=== PATIENT | female | born 1930 | race Caucasian/White ===

== ENCOUNTER 2017-01-29 10:58 | Inpatient (IN) | payer OTHER, MEDICAID ==
--- NOTE | 2017-01-29 11:51 | DR.EXTPAIN ---
HPI - Time seen Time seen: 13:10 - PCP Primary Care Physician: ROSMERY - HPI Comment HPI Comment: NO LOC. IN SEVERE PAIN. SOME SOB PRESENT. - Complaint/Symptoms Chief Complaint Doctor Comments: FALL, PAIN RT NECK, RT SHOULDER, RT HIP, RT KNEE, RT ANKLE AND UPPER BACK PAIN. Chief Complaint:: PT. 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 PT. C/O RIGHT UPPER BACK PAIN, RIGHT SHOULDER AND ARM PAIN, AND RIGHT LEG PAIN. PT. HAS SWELLING NOTED TO RIGHT SHOULDER BLADE. BRUISE NOTED TO RIGHT SHOULDER. - Nurses notes reviewed Nurses Notes Review: Yes - Source History Provided: Patient - Mode of arrival Mode of Arrival: Wheelchair - Timing Onset of Chief Complaint: 01/29/17 - Context History of: Arthritis - Associated signs and symptoms Associated Signs and Symptoms: Pain, Swelling, Bruising PMH - PMH Past Medical History: Yes Past Medical History: Dyslipidemia Past Medical History Comment: IRREGULAR HEART BEAT, STOMACH ULCERS Past Surgical History: Yes Surgical History: Hysterectomy, Ortho Surgery, Tonsillectomy Past Surgical History Comment: BACK SURGERY X 4, LEFT HIP, RIGHT HIP - Family History History of Family Medical Conditions: No - Social History Does patient currently use any type of tobacco product: No Have you used tobacco products in the last 12 months: No Type of Tobacco Use: None Does any household member use tobacco: No Alcohol Use: None Do you use any recreational Drugs:: No Lives With: Family Lives Where: Home - infectious screening In the last 2 months have you had wt loss of >10#?: NO Have you had fever, night sweats or hemotysis?: No Have you traveled outside the country in the last 6 months?: No Isolation: Standard ROS - Review of Systems Constitutional: Loss of Appetite. negative: Chills, Diaphoresis, Fever, Malaise , Weakness Eyes: negative: Eye Pain, Discharge ENTM: negative: Ear Pain, Nose Discharge, Nose Congestion, Throat Pain Respiratoy: Short of Breath (MILD). negative: Productive Cough, Non-Productive Cough, Wheezing, Hemoptysis Cardiovascular: Chest Pain (CHEST WALL PAIN RT UPPER BACK.) Gastrointestinal/Abdominal: negative: Abdominal Pain, Nausea, Vomiting Genitourinary: No Symptoms Reported. negative: Dysuria, Hematuria Neurological: Headache Musculoskeletal: Back Pain, Right, Hip, Knee, Ankle Integumentary: Bruises, Other (SWELLING UPPER BACK ON RT SIDE.) Hematologic/Lymphatic: Easy Bleeding, Easy Bruising Endocrine: No Symptoms Reported All Other Systems: Reviewed and Negative PE - Vital Signs Vitals: Temperature 98.2 F Pulse Rate 73 Respiratory Rate 17 Blood Pressure 120/66 O2 Sat by Pulse Oximetry 96 - General Limitations: No Limitations General Appearance: Alert (IN PAIN.) - Head Head Exam: Normal Inspection - Eyes Eye exam: Normal Appearance - ENT ENT Exam: Normal External Ear Exam - Neck Neck Exam: Trachea Midline - Chest Chest Inspection: Symmetric Chest Wall Rise, Tenderness (RT UPPER CHEST), Other (KYPHOSIS) - Respiratory Respiratory Exam: Normal Lung Sounds Bilat, Chest Wall Tenderness Respiratory Exam: Bilateral Rhonchi, Lower Rhonchi - Cardiovascular Cardiovascular Exam: Regular Rate, Normal Rhythm, Normal Heart Sounds - Abdominal Exam Abdominal Exam: Normal Bowel Sounds, Soft. negative: Tenderness - Extremities Extremities Exam: Tenderness (RT LOWER EXT.), Joint Swelling (RT KNEE AND RT ANKLE.) - Upper Extremities Shoulder Exam: Tenderness (RT SHOULDER), Swelling (RT SHOULDER), Erythema Arm Exam: Tenderness Elbow Exam: Normal Inspection Forearm Exam: Normal Inspection Hand Exam: Normal Inspection Neuromotor Exam: Normal Exam Upper Ext. Vascular Exam: Capillary Refill - Lower Extremities Hip/Pelvis Exam: Tenderness (TR HIP) Upper Leg Exam: Tenderness Knee Exam: Tenderness, Swelling. negative: Full ROM Lower Leg Exam: Tenderness Ankle Exam: Tenderness, Swelling Foot/Toe Exam: Tenderness Neurovascular/Tendon Exam: Normal Capillary Refill Gait Exam: Observed & Limited by Pain - Back Back Exam: Paraspinal Tenderness (RT), Vertebral Tenderness - Neurological Neurological Exam: Alert, Oriented X3 - Psychiatric Psychiatric Exam: Anxious - Skin Skin Exam: Erythema MDM - Differential Diagnosis Differential Diagnosis: Abrasion, Contusion, Fracture, Sprain, Other (CLOSE FRACTURE) Course - Treatment Treatment: SEE REPORT. - Consultation Consultation Comments: DISCUSS PATIENT WITH DR. STONER. HE WILL ADMIT PATIENT. - Education/Counseling Education/Counseling: Patient, Family, Education Educated On: Treatment, Diagnosis ROR - Labs Reviewed Result Diagrams: 01/29/17 15:36 01/29/17 15:36 - XRAY XRAY Interpreted by: Radiologist XRAY Findings: REPORT DISCUSS WITH PATIENT AND HER FAMILY. - EKG Rhythm: NSR (EKG NOTED) - Diagnosis Discharge Problem: Intractable pain, Multiple contusions Fracture of ribs, multiple Qualifiers: Encounter type: initial encounter Fracture type: closed Laterality: right Qualified Code(s): S22.41XA - Multiple fractures of ribs, right side, initial encounter for closed fracture - Discharge Plan Disposition: ADMITTED INPATIENT Condition: Stable - Follow ups/Referrals - Instructions
[2017-01-29] MEDS ORDERED: ZOFRAN INJ 4 MG VIAL IM ONE (12:44)
[2017-01-29] MEDS ORDERED: MORPHINE SULFATE INJ 4 MG IM ONE (12:44)
[2017-01-29] MEDS ORDERED: MORPHINE SULFATE INJ 4 MG ONE (12:51)
[2017-01-29] MEDS ORDERED: ZOFRAN INJ 4 MG VIAL ONE (12:51)
--- NOTE | 2017-01-29 14:13 | CT ---
History: Fall this morning with back and shoulder pain Study: Multi meeting/event planner CT thorax without IV contrast Findings: There is hyperinflation of clear lungs without pneumothorax or pleural effusion. There is no obvious mediastinal or hilar adenopathy. The heart size is prominent. There are multiple osteopor otic compression fractures most of which are stabilized by methylmethacrylate. The sternum is intact . The visualized upper abdomen is unremarkable. There is an acute fracture of the right 8th and 9th posterior ribs. Impression: 1. Right 8th and 9th acute posterior rib fractures 2. Osteoporosis 3. COPD Reported By:
--- NOTE | 2017-01-29 14:23 | CT ---
HISTORY: Injury, fall, neck pain Study: CT cervical spine without contrast Comparison: None Technique: Axial non contrast images with coronal and sagittal reformats. Dose reduction procedures were used with MA/kv adjusted for body size. Findings: The bones are osteopenic The prevertebral soft tissues are normal. The alignment is normal. The vert ebral bodies are of average height. Degenerative disc disease is present C3-4, C4-5. The pedicles, s pinous processes, and posterior elements are intact. Diffuse severe bilateral facet degenerative luz marina nt disease is present. Mild spondylitic canal stenosis is present at C3-4 atlantoaxial degenerative joint disease is present. There is no definite evidence for fracture or dislocation. IMPRESSION: No definite evidence for fracture or dislocation. Mild degenerative disc disease C3-4, C4-5 Diffuse bilateral facet degenerative joint disease. Mild spondylitic canal stenosis C3-4 Osteopenia Reported By:
--- NOTE | 2017-01-29 14:25 | RAD ---
History: Fall and pelvic pain. Study: AP pelvis Comparison: None there is osteopenia. There are bilateral hip compression nails and rods for intertr ochanteric fractures that appear to be old. The pubic rami are intact. No acute fracture is demonstr ated. Impression: Old looking intertrochanteric fractures, no acute disease demonstrated Reported By:
--- NOTE | 2017-01-29 14:26 | RAD ---
History: Fall and right shoulder pain Study: Three views of the right shoulder Findings: There is osteopenia. There is no fracture or dislocation demonstrated. Impression: No acute disease Reported By:
--- NOTE | 2017-01-29 14:26 | CT ---
HISTORY: Pain from fall Study: CT brain without contrast Comparison: None Technique: Multiple axial images of the brain were obtained from the skull base to the vertex without administr ation of IV contrast. Findings: No acute intraparenchymal hemorrhage or mass can be identified. No extra-axial fluid collections ar e seen. No alteration in the attenuation of the brain parenchyma can be identified to suggest acute or subacute ischemic change. The ventricles, sulci, and cisterns demonstrate an appearance consist ent with a [id number]-[id number] degree of generalized atrophy. Patchy areas of decreased attenuation wit hin the periventricular, subcortical, and subinsular white matter suggest changes of chronic small v essel ischemic disease. If symptoms or clinical concern persist recommend continued followup for fu rther evaluation. IMPRESSION: 1. No acute intracranial process can be identified. 2. Mild to moderate generalized atrophy with findings consistent with changes of chronic small vesse l ischemic disease. Reported By:
--- NOTE | 2017-01-29 14:26 | RAD ---
History: Fall and right ankle pain Study: Three views right ankle. Findings: There is osteopenia but no fracture or dislocation is demonstrated. Impression: No acute disease Reported By:
--- NOTE | 2017-01-29 14:29 | RAD ---
HISTORY: Injury, fall, right knee pain Study: Right knee three view Comparison: None Findings: No definite evidence for fracture is identified. There is severe tricompartmental degenerative joint disease present. There is a moderately large joint effusion present. IMPRESSION: No fracture identified Joint effusion Severe tricompartmental degenerative joint disease Reported By:
[2017-01-29] MEDS ORDERED: ZOFRAN INJ 4 MG VIAL IVP PRN (15:20)
[2017-01-29 15:46] LABS: BASOPHILS % (AUTO) 0.7 % (0.2-1.0); EOSINOPHILS # (AUTO) 0.2 x10^3/uL (0.0-0.2); EOSINOPHILS % (AUTO) 3.9 % (0.9-2.9); HEMATOCRIT 27.9 % (36.0-47.0); HEMOGLOBIN 9.5 g/dL (12.0-16.0); LYMPHOCYTES % (AUTO) 22.6 % (21.0-51.0); MEAN CORPUSCULAR HEMOGLOBIN 32.7 pg (27.0-34.0); MEAN CORPUSCULAR VOLUME 96.2 fL (80.0-100.0); MEAN PLATELET VOLUME 7.8 fL (7.4-11.0); MONOCYTES # (AUTO) 0.3 x10^3/uL (0.3-0.8); NEUTROPHILS # (AUTO) 2.9 x10^3/uL (2.2-4.8); NEUTROPHILS % (AUTO) 65.8 % (42.0-75.0); PLATELET COUNT 96 X10^3/uL (150.0-450.0); RED CELL DISTRIBUTION WIDTH 12.2 % (11.6-16.5); WHITE BLOOD COUNT 4.4 X10^3/uL (3.6-10.0)
[2017-01-29 15:55] LABS: ALANINE AMINOTRANSFERASE 28 Units/L (12-78); ALBUMIN 3.5 g/dL (3.4-5.0); ALKALINE PHOSPHATASE 46 Units/L (46-116); ASPARTATE AMINO TRANSFERASE 27 Units/L (15-37); BLOOD UREA NITROGEN 40 mg/dL (7-18); CALCIUM 8.4 mg/dL (8.5-10.1); CARBON DIOXIDE 32.2 mmol/L (21-32); CHLORIDE 102 mmol/L (98-107); CREATININE 1.35 mg/dL (0.55-1.02); GLUCOSE 92 mg/dL (65-99); SODIUM 136 mmol/L (136-145); TOTAL PROTEIN 6.8 g/dL (6.4-8.2); eGFR BLACK RACES 48 (>60); eGFR NON BLACK RACES 40 (>60)
[2017-01-29] MEDS: MORPHINE SULFATE INJ 2 MG IVP PRN ×2 (16:38→23:54)
[2017-01-29] MEDS: NS 1000 ML 1,000 ML IV SCH (17:09)
[2017-01-29] MEDS ORDERED: PROPRANOLOL HCL PO PRN (20:21)
[2017-01-29] MEDS ORDERED: KENALOG CREAM TOP PRN (20:27)
[2017-01-29] MEDS ORDERED: BETAXOLOL HCL EACHEYE SCH (21:00)
--- NOTE | 2017-01-29 21:25 | CT ---
CT right knee without contrast Indication: Knee pain after fall Technique: CT images of the right knee were obtained without contrast. Automatic exposure control wa s utilized. Comparison: None. Findings: There is marked generalized osteopenia, limiting evaluation of bony detail. There is acute minimally depressed fracture of the medial tibial plateau associated with subtle curv ilinear sclerosis within the metaphysis. There is cortical buckling along the medial aspect of the t ibial metaphysis. There is a large lipohemarthrosis. There appears to be a chronic healed fracture of the femoral metaphysis with associated external tin antoinette seen medially. There is severe tricompartmental DJD, worst in the lateral femorotibial compartment with associated large marginal osteophytes. Meniscal chondrocalcinosis is noted. Extensor mechanism and MCL are lamin sly intact. Impression: 1. Minimally depressed medial tibial plateau fracture. Large lipohemarthrosis. 2. Marked tricompartmental DJD, generalized osteopenia. 3. Meniscal chondrocalcinosis is nonspecific, but can be associated with CPPD arthropathy. Reported By:
[2017-01-29] MEDS: TIMOPTIC 0.5% EYE DROPS EACHEYE SCH (21:52)
[2017-01-29] MEDS: COSOPT OPTH EACHEYE SCH (21:52)
[2017-01-29] MEDS: BETAXOLOL HCL AFFEYE SCH (21:52)
[2017-01-29] MEDS: LYRICA CAP 75 MG PO SCH (23:59)
[2017-01-30] MEDS: MORPHINE SULFATE INJ 2 MG IVP PRN ×4 (04:03→17:20)
[2017-01-30] MEDS: NORCO 7.5/325 MG TAB PO PRN ×3 (05:26→19:13)
[2017-01-30 06:31] LABS: ALANINE AMINOTRANSFERASE 25 Units/L (12-78); ALBUMIN 3.4 g/dL (3.4-5.0); ALKALINE PHOSPHATASE 43 Units/L (46-116); ASPARTATE AMINO TRANSFERASE 24 Units/L (15-37); BLOOD UREA NITROGEN 27 mg/dL (7-18); CARBON DIOXIDE 29.8 mmol/L (21-32); CHLORIDE 105 mmol/L (98-107); COR NA(FOR HYPERGLY) 138 mmol/L (136-145); CREATININE 1.06 mg/dL (0.55-1.02); GLUCOSE 113 mg/dL (65-99); SODIUM 138 mmol/L (136-145); TOTAL PROTEIN 6.8 g/dL (6.4-8.2); eGFR BLACK RACES > 60 (>60); eGFR NON BLACK RACES 52 (>60)
[2017-01-30 07:38] LABS: BASOPHILS % (AUTO) 0.6 % (0.2-1.0); EOSINOPHILS # (AUTO) 0.2 x10^3/uL (0.0-0.2); EOSINOPHILS % (AUTO) 3.9 % (0.9-2.9); HEMATOCRIT 28.3 % (36.0-47.0); HEMOGLOBIN 9.7 g/dL (12.0-16.0); LYMPHOCYTES # (AUTO) 1.1 X10^3/uL (1.3-2.9); LYMPHOCYTES % (AUTO) 24.8 % (21.0-51.0); MEAN CORPUSCULAR HGB CONC 34.3 g/dL (33.0-35.0); MEAN CORPUSCULAR VOLUME 96.4 fL (80.0-100.0); MEAN PLATELET VOLUME 8.8 fL (7.4-11.0); MONOCYTES # (AUTO) 0.3 x10^3/uL (0.3-0.8); MONOCYTES % (AUTO) 7.3 % (0.0-13.0); NEUTROPHILS # (AUTO) 2.8 x10^3/uL (2.2-4.8); NEUTROPHILS % (AUTO) 63.4 % (42.0-75.0); PLATELET COUNT 84 X10^3/uL (150.0-450.0); RED BLOOD COUNT 2.94 X10^6/uL (3.5-5.4); RED CELL DISTRIBUTION WIDTH 12.5 % (11.6-16.5); WHITE BLOOD COUNT 4.4 X10^3/uL (3.6-10.0)
[2017-01-30] MEDS: PRAVACHOL PO SCH (08:49)
[2017-01-30] MEDS: INDERAL TAB 10 MG PO PRN (08:49)
[2017-01-30] MEDS: FLONASE NASAL SPRAY ENOSTRIL SCH (08:50)
[2017-01-30] MEDS: COSOPT OPTH EACHEYE SCH ×2 (08:51→20:49)
[2017-01-30] MEDS: TIMOPTIC 0.5% EYE DROPS EACHEYE SCH ×2 (08:52→10:14)
[2017-01-30] MEDS: LYRICA CAP 75 MG PO SCH ×2 (09:20→20:42)
[2017-01-30] MEDS: BETAXOLOL HCL AFFEYE SCH ×2 (10:12→20:42)
[2017-01-30] MEDS: NS 1000 ML 1,000 ML IV SCH ×2 (13:17→19:31)
[2017-01-30] MEDS: MILK OF MAGNESIA PO PRN (20:41)
[2017-01-30] MEDS: COLACE CAP 100 MG PO PRN (20:41)
[2017-01-31] MEDS: MORPHINE SULFATE INJ 2 MG IVP PRN ×2 (01:28→09:49)
[2017-01-31] MEDS: NORCO 7.5/325 MG TAB PO PRN ×2 (03:08→07:37)
[2017-01-31 06:39] LABS: BASOPHILS % (AUTO) 0.5 % (0.2-1.0); EOSINOPHILS # (AUTO) 0.2 x10^3/uL (0.0-0.2); EOSINOPHILS % (AUTO) 4.7 % (0.9-2.9); HEMATOCRIT 23.7 % (36.0-47.0); HEMOGLOBIN 8.2 g/dL (12.0-16.0); LYMPHOCYTES # (AUTO) 1.1 X10^3/uL (1.3-2.9); LYMPHOCYTES % (AUTO) 28.3 % (21.0-51.0); MEAN CORPUSCULAR HEMOGLOBIN 33.1 pg (27.0-34.0); MEAN CORPUSCULAR HGB CONC 34.4 g/dL (33.0-35.0); MEAN CORPUSCULAR VOLUME 96.1 fL (80.0-100.0); MEAN PLATELET VOLUME 8.4 fL (7.4-11.0); MONOCYTES # (AUTO) 0.4 x10^3/uL (0.3-0.8); MONOCYTES % (AUTO) 9.8 % (0.0-13.0); NEUTROPHILS # (AUTO) 2.2 x10^3/uL (2.2-4.8); NEUTROPHILS % (AUTO) 56.7 % (42.0-75.0); PLATELET COUNT 65 X10^3/uL (150.0-450.0); RED BLOOD COUNT 2.46 X10^6/uL (3.5-5.4); RED CELL DISTRIBUTION WIDTH 12.5 % (11.6-16.5)
[2017-01-31 06:54] LABS: ALANINE AMINOTRANSFERASE 21 Units/L (12-78); ALKALINE PHOSPHATASE 39 Units/L (46-116); ASPARTATE AMINO TRANSFERASE 19 Units/L (15-37); BLOOD UREA NITROGEN 18 mg/dL (7-18); CARBON DIOXIDE 28.3 mmol/L (21-32); CHLORIDE 105 mmol/L (98-107); COR CA(FOR HYPOALB) 8.8 mg/dL (8.5-10.1); CREATININE 0.88 mg/dL (0.55-1.02); GLUCOSE 95 mg/dL (65-99); SODIUM 136 mmol/L (136-145); TOTAL PROTEIN 6.1 g/dL (6.4-8.2); eGFR BLACK RACES > 60 (>60); eGFR NON BLACK RACES > 60 (>60)
[2017-01-31] MEDS: LYRICA CAP 75 MG PO SCH ×2 (09:43→20:19)
[2017-01-31] MEDS: COLACE CAP 100 MG PO PRN (09:43)
[2017-01-31] MEDS: MILK OF MAGNESIA PO PRN (09:43)
[2017-01-31] MEDS: FLONASE NASAL SPRAY ENOSTRIL SCH (09:44)
[2017-01-31] MEDS: BETAXOLOL HCL AFFEYE SCH ×2 (09:44→20:23)
[2017-01-31] MEDS: COSOPT OPTH EACHEYE SCH ×2 (09:44→20:29)
[2017-01-31] MEDS: INDERAL TAB 10 MG PO PRN (09:44)
[2017-01-31] MEDS: TIMOPTIC 0.5% EYE DROPS EACHEYE SCH (09:47)
[2017-01-31] MEDS: PRAVACHOL PO SCH (10:58)
[2017-01-31] MEDS: NORCO 10/325 TAB PO PRN ×2 (14:35→23:07)
[2017-01-31] MEDS: ZANTAC PO SCH ×2 (14:36→20:19)
[2017-01-31] MEDS: DILAUDID INJ IVP PRN (20:11)
[2017-02-01] MEDS: DILAUDID INJ IVP PRN (06:07)
[2017-02-01] MEDS: NS 1000 ML 1,000 ML IV SCH ×3 (06:08→19:35)
[2017-02-01 06:16] LABS: BASOPHILS % (AUTO) 0.8 % (0.2-1.0); EOSINOPHILS # (AUTO) 0.1 x10^3/uL (0.0-0.2); EOSINOPHILS % (AUTO) 3.3 % (0.9-2.9); HEMATOCRIT 23.4 % (36.0-47.0); LYMPHOCYTES # (AUTO) 1.3 X10^3/uL (1.3-2.9); LYMPHOCYTES % (AUTO) 28.5 % (21.0-51.0); MEAN CORPUSCULAR HEMOGLOBIN 33.2 pg (27.0-34.0); MEAN CORPUSCULAR HGB CONC 34.4 g/dL (33.0-35.0); MEAN CORPUSCULAR VOLUME 96.5 fL (80.0-100.0); MEAN PLATELET VOLUME 9.3 fL (7.4-11.0); MONOCYTES # (AUTO) 0.6 x10^3/uL (0.3-0.8); MONOCYTES % (AUTO) 12.9 % (0.0-13.0); NEUTROPHILS # (AUTO) 2.4 x10^3/uL (2.2-4.8); NEUTROPHILS % (AUTO) 54.5 % (42.0-75.0); PLATELET COUNT 67 X10^3/uL (150.0-450.0); RED BLOOD COUNT 2.42 X10^6/uL (3.5-5.4); RED CELL DISTRIBUTION WIDTH 12.5 % (11.6-16.5); WHITE BLOOD COUNT 4.5 X10^3/uL (3.6-10.0)
[2017-02-01 06:31] LABS: ALANINE AMINOTRANSFERASE 17 Units/L (12-78); ALBUMIN 2.7 g/dL (3.4-5.0); ALKALINE PHOSPHATASE 37 Units/L (46-116); ASPARTATE AMINO TRANSFERASE 20 Units/L (15-37); BLOOD UREA NITROGEN 14 mg/dL (7-18); CALCIUM 7.8 mg/dL (8.5-10.1); CARBON DIOXIDE 26.5 mmol/L (21-32); CHLORIDE 106 mmol/L (98-107); COR CA(FOR HYPOALB) 8.8 mg/dL (8.5-10.1); CREATININE 0.82 mg/dL (0.55-1.02); GLUCOSE 91 mg/dL (65-99); SODIUM 137 mmol/L (136-145); eGFR BLACK RACES > 60 (>60); eGFR NON BLACK RACES > 60 (>60)
[2017-02-01] MEDS: LYRICA CAP 75 MG PO SCH ×2 (09:59→20:22)
[2017-02-01] MEDS: NORCO 10/325 TAB PO PRN ×2 (09:59→16:30)
[2017-02-01] MEDS: ZANTAC PO SCH ×2 (10:01→20:22)
[2017-02-01] MEDS: PRAVACHOL PO SCH ×2 (10:01→10:05)
[2017-02-01] MEDS: TIMOPTIC 0.5% EYE DROPS EACHEYE SCH (10:02)
[2017-02-01] MEDS: FLONASE NASAL SPRAY ENOSTRIL SCH (10:03)
[2017-02-01] MEDS: BETAXOLOL HCL AFFEYE SCH ×2 (10:03→20:28)
[2017-02-01] MEDS: COSOPT OPTH EACHEYE SCH ×2 (10:04→20:28)
[2017-02-02] MEDS: NORCO 10/325 TAB PO PRN ×3 (00:30→17:04)
[2017-02-02] MEDS: NS 1000 ML 1,000 ML IV SCH ×2 (00:32→16:38)
[2017-02-02 04:41] LABS: BASOPHILS % (AUTO) 0.9 % (0.2-1.0); EOSINOPHILS # (AUTO) 0.2 x10^3/uL (0.0-0.2); EOSINOPHILS % (AUTO) 3.9 % (0.9-2.9); HEMATOCRIT 23.5 % (36.0-47.0); HEMOGLOBIN 8.1 g/dL (12.0-16.0); LYMPHOCYTES # (AUTO) 1.1 X10^3/uL (1.3-2.9); LYMPHOCYTES % (AUTO) 24.6 % (21.0-51.0); MEAN CORPUSCULAR HGB CONC 34.4 g/dL (33.0-35.0); MEAN CORPUSCULAR VOLUME 95.9 fL (80.0-100.0); MEAN PLATELET VOLUME 9.2 fL (7.4-11.0); MONOCYTES # (AUTO) 0.5 x10^3/uL (0.3-0.8); MONOCYTES % (AUTO) 11.7 % (0.0-13.0); NEUTROPHILS # (AUTO) 2.5 x10^3/uL (2.2-4.8); NEUTROPHILS % (AUTO) 58.9 % (42.0-75.0); PLATELET COUNT 77 X10^3/uL (150.0-450.0); RED BLOOD COUNT 2.45 X10^6/uL (3.5-5.4); RED CELL DISTRIBUTION WIDTH 12.6 % (11.6-16.5); WHITE BLOOD COUNT 4.3 X10^3/uL (3.6-10.0)
[2017-02-02 04:51] LABS: ALANINE AMINOTRANSFERASE 19 Units/L (12-78); ALBUMIN 2.7 g/dL (3.4-5.0); ALKALINE PHOSPHATASE 40 Units/L (46-116); ASPARTATE AMINO TRANSFERASE 18 Units/L (15-37); BLOOD UREA NITROGEN 14 mg/dL (7-18); CALCIUM 7.9 mg/dL (8.5-10.1); CARBON DIOXIDE 27.6 mmol/L (21-32); CHLORIDE 104 mmol/L (98-107); COR CA(FOR HYPOALB) 8.9 mg/dL (8.5-10.1); GLUCOSE 99 mg/dL (65-99); SODIUM 135 mmol/L (136-145); TOTAL PROTEIN 6.1 g/dL (6.4-8.2); eGFR BLACK RACES > 60 (>60); eGFR NON BLACK RACES > 60 (>60)
[2017-02-02] MEDS: DILAUDID INJ IVP PRN ×2 (07:40→20:06)
[2017-02-02] MEDS: ZANTAC PO SCH ×2 (09:09→20:07)
[2017-02-02] MEDS: FLONASE NASAL SPRAY ENOSTRIL SCH (09:10)
[2017-02-02] MEDS: PRAVACHOL PO SCH ×2 (09:11→09:38)
[2017-02-02] MEDS: COSOPT OPTH EACHEYE SCH ×2 (09:12→20:15)
[2017-02-02] MEDS: BETAXOLOL HCL AFFEYE SCH ×2 (09:12→20:15)
[2017-02-02] MEDS: LYRICA CAP 75 MG PO SCH ×2 (09:13→20:07)
[2017-02-02] MEDS: TIMOPTIC 0.5% EYE DROPS EACHEYE SCH (09:13)
[2017-02-02] MEDS ORDERED: COLACE CAP 100 MG PO SCH (15:00)
[2017-02-02] MEDS ORDERED: MILK OF MAGNESIA PO SCH (21:00)
[2017-02-03] MEDS: NORCO 10/325 TAB PO PRN (04:39)
[2017-02-03 05:09] LABS: BASOPHILS % (AUTO) 0.9 % (0.2-1.0); EOSINOPHILS # (AUTO) 0.2 x10^3/uL (0.0-0.2); EOSINOPHILS % (AUTO) 5.8 % (0.9-2.9); HEMATOCRIT 24.1 % (36.0-47.0); HEMOGLOBIN 8.4 g/dL (12.0-16.0); LYMPHOCYTES # (AUTO) 0.9 X10^3/uL (1.3-2.9); LYMPHOCYTES % (AUTO) 31.3 % (21.0-51.0); MEAN CORPUSCULAR HEMOGLOBIN 33.5 pg (27.0-34.0); MEAN CORPUSCULAR HGB CONC 34.8 g/dL (33.0-35.0); MEAN CORPUSCULAR VOLUME 96.3 fL (80.0-100.0); MEAN PLATELET VOLUME 8.9 fL (7.4-11.0); MONOCYTES # (AUTO) 0.4 x10^3/uL (0.3-0.8); MONOCYTES % (AUTO) 13.6 % (0.0-13.0); NEUTROPHILS # (AUTO) 1.5 x10^3/uL (2.2-4.8); NEUTROPHILS % (AUTO) 48.4 % (42.0-75.0); PLATELET COUNT 86 X10^3/uL (150.0-450.0); RED BLOOD COUNT 2.51 X10^6/uL (3.5-5.4); RED CELL DISTRIBUTION WIDTH 12.3 % (11.6-16.5)
[2017-02-03 05:11] LABS: ALANINE AMINOTRANSFERASE 17 Units/L (12-78); ALBUMIN 2.8 g/dL (3.4-5.0); ALKALINE PHOSPHATASE 43 Units/L (46-116); ASPARTATE AMINO TRANSFERASE 20 Units/L (15-37); BLOOD UREA NITROGEN 14 mg/dL (7-18); CALCIUM 8.3 mg/dL (8.5-10.1); CARBON DIOXIDE 28.6 mmol/L (21-32); CHLORIDE 106 mmol/L (98-107); COR CA(FOR HYPOALB) 9.3 mg/dL (8.5-10.1); CREATININE 0.75 mg/dL (0.55-1.02); GLUCOSE 88 mg/dL (65-99); SODIUM 141 mmol/L (136-145); TOTAL PROTEIN 6.3 g/dL (6.4-8.2); eGFR BLACK RACES > 60 (>60); eGFR NON BLACK RACES > 60 (>60)
[2017-02-03] MEDS: DILAUDID INJ IVP PRN (07:49)
[2017-02-03] MEDS ORDERED: COLACE CAP 100 MG PO SCH (09:00)
[2017-02-03] MEDS ORDERED: BUTT CREAM (COMPOUND) TOP PRN (09:27)
[2017-02-03] MEDS: ZANTAC PO SCH (09:59)
[2017-02-03] MEDS: FLONASE NASAL SPRAY ENOSTRIL SCH (10:00)
[2017-02-03] MEDS: LYRICA CAP 75 MG PO SCH (10:00)
[2017-02-03] MEDS: PRAVACHOL PO SCH ×2 (10:00→10:02)
[2017-02-03] MEDS: BETAXOLOL HCL AFFEYE SCH (10:00)
[2017-02-03] MEDS: COSOPT OPTH EACHEYE SCH (10:01)
[2017-02-03] MEDS: TIMOPTIC 0.5% EYE DROPS EACHEYE SCH (10:02)
[2017-02-03 12:36] VITALS: BP 166/72
[2017-02-03] MEDS ORDERED: GYLCERIN ADULT SUPP RECTAL PRN (13:14)
--- NOTE | 2017-02-08 19:06 | PCM.PROG ---
Progress Note - Progress Note for Day of Date: 02/02/17 - Subjective Subjective: THE PATIENT IS AN 86 YO FEMALE WHO HAS HAD MULTIPLE FALLS RESULTING IN INCREASED LOW BACK PAIN AND RIB CONTUSIONS. PATIENT CONTINUES TO COMPLAIN OF PAIN. - Past Medical Family Social History Past Med/Fam/Surg Hx: No changes since H&P Allergies: Allergies MS Ciprofloxacin [From Cipro] Adverse Reaction (Verified 01/29/17 16:06) MS Clindamycin [Clindamycin] Adverse Reaction (Verified 01/29/17 16:06) MS Penicillins [Penicillins] Adverse Reaction (Verified 01/29/17 16:06) MS Rofecoxib [From Vioxx] Adverse Reaction (Verified 01/29/17 16:06) - Review of Systems ROS: No change since H&P - Vital Signs and I&O's Vital Signs: Temperature 98.4 F Pulse Rate [Right Brachial] 83 Pulse Rate [Left Brachial] 89 Respiratory Rate 16 Blood Pressure [Right Arm] 166/72 Blood Pressure [Left Arm] 112/56 O2 Sat by Pulse Oximetry 96 - Physical Exam Oriented: Normal Eyes: Normal Ear: Normal Nose: Normal Throat: Normal Respiratory: Normal Cardiovascular: Normal : Normal Auscultation: Bowel Sounds: Normal Palpation: Normal Tenderness: Normal Skin: Normal Musculoskeletal: Back:Thoracic (RIBS), Back:Lumbar, Tender Psychiatric: Normal Mood Description: Calm Affect: Normal Speech Pattern: Clear, Appropriate - Laboratory and Diagnostics Result Diagrams: 02/03/17 03:25 02/03/17 03:25 Labs: Laboratory WBC 3.0 X10^3/uL (3.6-10.0) L 02/03/17 03:25 RBC 2.51 X10^6/uL (3.5-5.4) L 02/03/17 03:25 Hgb 8.4 g/dL (12.0-16.0) L 02/03/17 03:25 Hct 24.1 % (36.0-47.0) L 02/03/17 03:25 MCV 96.3 fL (80.0-100.0) 02/03/17 03:25 MCH 33.5 pg (27.0-34.0) 02/03/17 03:25 MCHC 34.8 g/dL (33.0-35.0) 02/03/17 03:25 RDW 12.3 % (11.6-16.5) 02/03/17 03:25 Plt Count 86 X10^3/uL (150.0-450.0) L 02/03/17 03:25 MPV 8.9 fL (7.4-11.0) 02/03/17 03:25 Neut % 48.4 % (42.0-75.0) 02/03/17 03:25 Lymph % 31.3 % (21.0-51.0) 02/03/17 03:25 Mcdonald % 13.6 % (0.0-13.0) H 02/03/17 03:25 Eos % 5.8 % (0.9-2.9) H 02/03/17 03:25 Baso % 0.9 % (0.2-1.0) 02/03/17 03:25 Neut # 1.5 x10^3/uL (2.2-4.8) L 02/03/17 03:25 Lymph # 0.9 X10^3/uL (1.3-2.9) L 02/03/17 03:25 Mcdonald # 0.4 x10^3/uL (0.3-0.8) 02/03/17 03:25 Eos # 0.2 x10^3/uL (0.0-0.2) 02/03/17 03:25 Baso # 0.0 X10^3/uL (0.0-0.1) 02/03/17 03:25 Absolute Nucleated RBC 0.1 /100WBC 02/03/17 03:25 Sodium 141 mmol/L (136-145) 02/03/17 03:25 Corrected Sodium TNP 02/03/17 03:25 Potassium 4.3 mmol/L (3.5-5.1) 02/03/17 03:25 Chloride 106 mmol/L (98-107) 02/03/17 03:25 Carbon Dioxide 28.6 mmol/L (21-32) 02/03/17 03:25 BUN 14 mg/dL (7-18) 02/03/17 03:25 Creatinine 0.75 mg/dL (0.55-1.02) 02/03/17 03:25 Est GFR (MDRD) Af Amer > 60 (>60) 02/03/17 03:25 Est GFR (MDRD) Non-Af > 60 (>60) 02/03/17 03:25 Glucose 88 mg/dL (65-99) 02/03/17 03:25 Calcium 8.3 mg/dL (8.5-10.1) L 02/03/17 03:25 Corrected Calcium 9.3 mg/dL (8.5-10.1) 02/03/17 03:25 Total Bilirubin 0.50 mg/dL (0.2-1.0) 02/03/17 03:25 AST 20 Units/L (15-37) 02/03/17 03:25 ALT 17 Units/L (12-78) 02/03/17 03:25 Alkaline Phosphatase 43 Units/L (46-116) L 02/03/17 03:25 Total Protein 6.3 g/dL (6.4-8.2) L 02/03/17 03:25 Albumin 2.8 g/dL (3.4-5.0) L 02/03/17 03:25 Globulin 3.5 g/dL (2.5-4.5) 02/03/17 03:25 Albumin/Globulin Ratio 0.8 Ratio (1.1-2.1) L 02/03/17 03:25 - Plan (1) Fracture of ribs, multiple Status: Acute Qualifiers: Encounter type: initial encounter Fracture type: closed Laterality: right Fracture healing: F Qualified Code(s): S22.41XA - Multiple fractures of ribs, right side, initial encounter for closed fracture Plan: PAIN MANAGEMENT, MONITOR LUNGS (2) Intractable pain Status: Acute Plan: PAIN MED INDICATED, REPOSITION NEEDED. (3) Acute exacerbation of chronic low back pain Status: Acute Plan: PAIN MGMT NEEDED.
== END 2017-02-03 16:30 | DRG 185 ==
LOC: ER 11:11 → OBS 15:14 → OBSVTOIN 01-31 15:00 → MED/SURG 01-31 16:00
PROVIDERS: ADMIT Internal Medicine; ATTEND Internal Medicine
DX: S22.41XA Multiple fractures of ribs, right side, initial encounter for closed fracture (principal); W18.39XA Other fall on same level, initial encounter; M25.511 Pain in right shoulder; M25.551 Pain in right hip; M25.561 Pain in right knee; M25.571 Pain in right ankle and joints of right foot; M54.89 Other dorsalgia; E78.2 Mixed hyperlipidemia; T14.8 Other injury of unspecified body region; R53.1 Weakness; Z91.81 History of falling; R06.02 Shortness of breath; L89.152 Pressure ulcer of sacral region, stage 2; R26.89 Other abnormalities of gait and mobility; R60.0 Localized edema
CPT/HCPCS: 36415; 70450; 71250; 72125; 72170; 73030; 73564; 73610; 73700; 80053; 85025; 93005; 93010; 94760; 96365; 96372; 99231; 99282; 99284; A4216; A4222; G0378; J2270; J2405